=== PATIENT | female | born 1980 | race Caucasian/White ===

== ENCOUNTER 2023-05-13 12:05 | Emergency (ER) | payer OTHER, SELFPAY ==
[2023-05-13 12:13] VITALS: BP 131/84; PULSE 79; RESP 16; TEMP 36.2; O2SAT 98; BMI 26.5
[2023-05-13] MEDS: SODIUM CHLORIDE 0.9% 1,000 ML 1000 ML IV (12:33)
[2023-05-13] MEDS: ONDANSETRON 4 MG/2 ML INJ IV (12:34)
[2023-05-13 12:36] LABS: Add Manual Diff / Slide Review NO; Basophils Absolute Auto 100 /uL (0-100); Basophils Percent Auto 1.2 % (0-2); Eosinophils Absolute Auto 100 /uL (0-450); Eosinophils Percent Auto 1.1 % (2-4); Hematocrit 43.5 % (36-46); Hemoglobin 14.5 g/dL (12.0-16.0); Lymphocytes Absolute Auto 2000 /uL (1100-4500); Lymphocytes Percent Auto 27.3 % (25-40); Mean Corpuscular HGB Conc 33.3 % (30-36); Mean Corpuscular Hemoglobin 30.6 PG (26-34); Mean Corpuscular Volume 92.1 fL (80-100); Monocytes Absolute Auto 400 /uL (0-900); Monocytes Percent Auto 5.2 % (3-14); Neutrophils Absolute Auto 4700 /uL (1500-7000); Neutrophils Percent Auto 65.2 % (50-75); Platelet Count 245 X10^3/uL (150-400); Red Blood Cell Count 4.72 X10^6/uL (4.0-5.2); Red Cell Distribution Width 12.2 % (11.6-14.8); White Blood Cell Count 7.2 X10^3/uL (4.5-11.0)
[2023-05-13 12:46] LABS: Alanine Aminotransferase 20 IU/L (<35); Albumin 4.5 g/dL (3.5-5.0); Albumin Globulin Ratio 1.4 (1.0-2.8); Alkaline Phosphatase 55 U/L (38-126); Aspartate Aminotransferase 21 IU/L (14-36); BUN Creatinine Ratio 18.8 (6-22); Bilirubin Total 0.6 mg/dL (0.2-1.3); Blood Urea Nitrogen 15 mg/dL (7-17); Calcium 9.7 mg/dL (8.4-10.2); Carbon Dioxide 26 mmol/L (22-32); Chloride 106 mmol/L (98-107); Estimated Glomerular Filt Rate > 60 mL/min (>60); Globulin 3.2 g/dL (1.7-4.1); Glucose 136 mg/dL (70-100); HEMOLYSIS < 15 (0-50); Lipase 45 U/L (23-300); Potassium 3.9 mmol/L (3.4-5.1); Sodium 138 mmol/L (137-145); Total Protein 7.7 g/dL (6.3-8.2)
--- NOTE | 2023-05-13 13:27 | ED_ITS ---
HPI - Nausea/Vomiting/Diarrhea General Chief complaint: Nausea/Vomiting/Diarrhea Stated complaint: N/V/Dizzy Time Seen by Provider: 05/13/23 12:21 Source: patient Mode of arrival: Ambulatory History of Present Illness HPI Narrative: Patient is a healthy 42-year-old female presents today with dizziness nausea vomiting and neck pain. She reports that she was having some neck pain little bit yesterday felt like her neck tight. She came in slept in a camper this morning having worsening neck pain and suddenly felt dizzy and nauseous. No numbness tingling or weakness. No injury to her neck. No abdominal pain no visual changes. Her dizziness is definitely worse with movement. She has no prior history of vertigo. She is thrown up numerous times. She is feeling better after Zofran and fluids. Related Data Previous Rx's Medication Instructions Recorded meclizine 25 mg tablet 25 mg PO TID PRN dizziness #10 tabs 05/13/23 ondansetron 4 mg disintegrating 4 mg PO Q8H PRN nausea and 05/13/23 tablet vomiting #10 tabs Allergies Allergy/AdvReac Type Severity Reaction Status Date / Time No Known Drug Allergies Allergy Verified 05/13/23 12:13 Patient History Social History Smoking Status: Never smoker Smoking Status: Never smoker alcohol intake frequency: a few times a week Alcohol type: beer Substance Use Type: does not use Exam Initial Vital Signs Initial Vital Signs: Vital Signs Temperature 97.2 F L 05/13/23 12:13 Pulse Rate 79 05/13/23 12:13 Respiratory Rate 16 05/13/23 12:13 Blood Pressure 131/84 05/13/23 12:13 Pulse Oximetry 98 05/13/23 12:13 Oxygen Delivery Method Room Air 05/13/23 12:13 GENERAL: Alert 42-year-old female wearing sunglasses in [id number] distress HEENT: Head atraumatic,EOMI, pupils reactive, no nystagmus face symmetric, moist mucous membranes CARDIOVASCULAR: Regular rate and rhythm without murmurs, rubs or gallops. RESPIRATORY: Breath sounds equal bilaterally, no wheezes rales or rhonchi. ABDOMEN: Soft, nontender. Normoactive bowel sounds all 4 quadrants. No guarding or rebound. EXTREMITIES: Normal range of motion, no clubbing or edema. Neurovascularly intact NEUROLOGICAL: Alert and oriented x4.Normal gait and speech. Cranial nerves II through XII grossly intact. SKIN: Warm, dry, no laceration, no petechiae, no rashes or lesions. Scores NIH Stroke Scale Level of Conciousness: Alert, keenly responsive Ask month/age: Answers both questions correctly. Open/close eyes, close hand: Performs both tasks correctly Best gaze horizontal: Normal Visual cheng: No visual loss Facial palsy: Normal symetrical movement Left arm drift: No drift for full 10 sec Right arm drift: No drift for full 10 sec Left leg drift: No drift for full 5 sec Right leg drift: No drift for full 5 sec Limb ataxia: Absent Sensory on face/arms/legs: Normal, no sensory loss Best language: No aphasia, normal Dysarthria: Normal Extinction or inattention: No abnormality Total NIH Stroke scale score: 0 Course Orders Ordered: ED Orders 05/13/23 12:29 Complete Blood Count AUTO DIFF Stat Comprehensive Metabolic Panel Stat Lipase Stat Discontinued Medications Sodium Chloride (Normal Saline 0.9%) 1,000 mls @ 1,000 mls/hr IV BOLUS ONE Stop: 05/13/23 13:21 Last Infusion: 05/13/23 14:00 Dose: Infused Documented By: Admin: 05/13/23 12:33 Dose: 1,000 mls/hr Documented By: SHELBI Ketorolac Tromethamine (Ketorolac 30 Mg/Ml Vial) 15 mg IV NOW ONE Stop: 05/13/23 13:37 Last Admin: 05/13/23 13:52 Dose: 15 mg Documented By: LISETH Meclizine HCl (Meclizine Hcl 12.5 Mg Tablet) 50 mg PO NOW ONE Stop: 05/13/23 13:37 Last Admin: 05/13/23 13:52 Dose: 50 mg Documented By: LISETH Ondansetron HCl (Ondansetron 4 Mg Odt) 4 mg SL NOW PRN PRN Reason: Nausea And Vomiting Ondansetron HCl (Ondansetron 4 Mg/2 Ml Inj) 4 mg IV NOW PRN PRN Reason: Nausea And Vomiting Last Admin: 05/13/23 12:34 Dose: 4 mg Documented By: SHELBI Vital Signs Vital signs: Vital Signs - 8 hr 05/13/23 12:13 05/13/23 14:01 Temperature 97.2 F L Pulse Rate 79 80 Respiratory Rate 16 20 Blood Pressure 131/84 129/75 Pulse Oximetry 98 100 Oxygen Delivery Method Room Air Room Air MDM - Nausea/Vomiting/Diarrhea Lab Data 05/13/23 12:29 05/13/23 12:29 Labs: Lab Results 05/13/23 Range/Units 12:29 WBC 7.2 (4.5-11.0) X10^3/uL RBC 4.72 (4.0-5.2) X10^6/uL Hgb 14.5 (12.0-16.0) g/dL Hct 43.5 (36-46) % MCV 92.1 (80-100) fL MCH 30.6 (26-34) PG MCHC 33.3 (30-36) % RDW 12.2 (11.6-14.8) % Plt Count 245 (150-400) X10^3/uL Neut % (Auto) 65.2 (50-75) % Lymph % (Auto) 27.3 (25-40) % [place] % (Auto) 5.2 (3-14) % Eos % (Auto) 1.1 L (2-4) % Baso % (Auto) 1.2 (0-2) % Neut # (Auto) 4700 (1063-6614) /uL Lymph # (Auto) 2000 (7129-0671) /uL [place] # (Auto) 400 (0-900) /uL Eos # (Auto) 100 (0-450) /uL Baso # (Auto) 100 (0-100) /uL Sodium 138 (137-145) mmol/L Potassium 3.9 (3.4-5.1) mmol/L Chloride 106 (98-107) mmol/L Carbon Dioxide 26 (22-32) mmol/L BUN 15 (7-17) mg/dL Creatinine 0.80 (0.52-1.04) mg/dL Estimated GFR > 60 (>60) mL/min BUN/Creatinine Ratio 18.8 (6-22) Glucose 136 H (70-100) mg/dL Calcium 9.7 (8.4-10.2) mg/dL Total Bilirubin 0.6 (0.2-1.3) mg/dL AST 21 (14-36) IU/L ALT 20 (<35) IU/L Alkaline Phosphatase 55 (38-126) U/L Total Protein 7.7 (6.3-8.2) g/dL Albumin 4.5 (3.5-5.0) g/dL Globulin 3.2 (1.7-4.1) g/dL Albumin/Globulin Ratio 1.4 (1.0-2.8) Lipase 45 (23-300) U/L Point of Care Testing Test Results Negative Urine Dip Bedside Urine Glucose Negative Bedside Urine Bilirubin - Negative Bedside Urine Ketone - Negative Urine Specific [place] 1.015 Bedside Urine Occult Blood - Negative Bedside Urine pH 6.5 Bedside Urine Protein - Negative Bedside Urine Urobilinogen - Negative Bedside Urine Nitrite - Negative Bedside Urine Leukocytes - Negative Esterase ECG Data Interpretation: Sinus rhythm rate 60 AZ interval 132 QRS 84 QTC 428 T-wave inversion noted in lead 3 only no priors to compare no other ischemic changes MDM Narrative Medical decision making narrative: Patient 42-year-old female presents today with dizziness nausea vomiting neck pain. It sounds as though her neck pain started yesterday she felt a kind of getting sore. She works on a farm and agreed. Definitely worse with palpation and movement. Denying any sort of injury. Woke up this morning with sudden onset dizziness and persistent vomiting Symptoms are most consistent with a vertigo. I think less likely to be carotid dissection without any sort of trauma. Blood work has been reviewed without significant clinical abnormality no anemia or electrolyte abnormality EKG has been reviewed above No need for imaging Patient received IV fluids Zofran Toradol and meclizine overall feeling much better. I suspect a vertigo and of neck strain. Overall feeling better. Discharge Plan Departure Patient Disposition: Home Clinical Impression: Vertigo Instructions: DI for Vertigo Activity Restrictions/Additional Instructions: *You have been diagnosed with vertigo *What to do: At this time I hope that you start feeling better. Rest as needed. *Continue to take medications as directed Zofran 4 mg every 8 hours if needed for nausea or vomiting Meclizine 25-50 mg every 8 hours for dizziness Tylenol Motrin as needed for pain *Follow up with your primary care provider in 2-3 days or call [phone] *Return to ER if you should have increasing dizziness persistent vomiting numbness tingling weakness or any new, worsening or concerning symptoms Prescriptions: New meclizine 25 mg tablet 25 mg PO TID PRN (Reason: dizziness) Qty: 10 0RF ondansetron 4 mg tablet,disintegrating 4 mg PO Q8H PRN (Reason: nausea and vomiting) Qty: 10 0RF Stand Alone Forms: Patient Portal/API
[2023-05-13] MEDS: KETOROLAC 30 MG/ML VIAL 15 MG IV (13:52)
[2023-05-13] MEDS: MECLIZINE HCL 12.5 MG TABLET 50 MG PO (13:52)
[2023-05-13 14:01] VITALS: BP 129/75; PULSE 80; RESP 20; O2SAT 100
== END 2023-05-13 14:02 | disposition home or self-care (01) ==
PROVIDERS: Emergency Provider Emergency Medicine
DX: R42 Dizziness and giddiness (principal); R11.2 Nausea with vomiting, unspecified; M54.2 Cervicalgia; R10.9 Unspecified abdominal pain
CPT/HCPCS: 36415; 80053; 81003; 81025; 83690; 85025; 93005; 93010; 96361; 96374; 96375; 99284; J1885; J2405